=== PATIENT | male | born 1970 | race Caucasian/White ===

== ENCOUNTER 2019-04-10 14:28 | Inpatient (IN) ==
[2019-04-10] MEDS ORDERED: LR 1,000 ML ONE (15:21)
[2019-04-10] MEDS ORDERED: ZOSYN 3.375 GM in NS 50 ML IV ONE (15:40)
[2019-04-10 15:44] LABS: URINE SOURCE CLEAN CATCH
[2019-04-10 15:51] LABS: BILIRUBIN URINE NEGATIVE (NEGATIVE); BLOOD URINE TRACE (NEGATIVE); COLOR YELLOW; GLUCOSE URINE 1000 mg/dL (NEGATIVE); KETONE URINE 20 mg/dL (NEGATIVE); LEUKOCYTES URINE NEGATIVE (NEGATIVE); NITRITE URINE NEGATIVE (NEGATIVE); PROTEIN URINE TRACE mg/dL (NEGATIVE); SP GRAVITY URINE 1.008; TURBIDITY URINE CLEAR (CLEAR); UROBILINOGEN URINE NORMAL (NORMAL)
[2019-04-10 15:55] LABS: UR EPITHELIAL CELLS <10 /HPF (<10); URINE BACTERIA NEGATIVE /HPF; URINE RBC <10 /HPF (<10); URINE WBC <10 /HPF (<10)
[2019-04-10 15:57] LABS: HEMATOCRIT 38.2 % (42.0-52.0); HEMOGLOBIN 12.7 g/dL (14.0-18.0); MCH 28.1 PG (27-31); MCHC 33.2 g/dL (33-37); MCV 84.5 FL (81-99); MPV 8.3 FL (7.4-10.4); RBC 4.52 XMIL (4.7-6.1); RDW 14.3 % (11.5-14.5); WBC 12.91 X1000 (4.8-10.8)
[2019-04-10 16:26] LABS: AGAP 10; ALB/GLOB RATIO 1.1; ALBUMIN 3.9 g/dL (3.5-5.0); ALKALINE PHOSPHATASE 69 U/L (32-122); BUN 14 mg/dL (8-22); CHLORIDE 97 mmol/L (98-107); COSMO 270; CREATININE 0.9 mg/dL (0.7-1.2); ESTIMATED GFR > 60; GLUCOSE 121 mg/dL (70-104); GOT 15 U/L (10-34); GPT 38 U/L (10-44); POTASSIUM 3.5 mmol/L (3.5-5.1); SODIUM 134 mmol/L (136-145); TCO2 27 mmol/L (25-35); TOTAL BILIRUBIN 0.79 mg/dL (0.20-1.00); TOTAL PROTEIN 7.3 g/dL (6.3-8.3)
[2019-04-10] MEDS ORDERED: PEPCID ONE (16:51)
[2019-04-10] MEDS ORDERED: ZOFRAN IV PRN (17:28)
[2019-04-10] MEDS ORDERED: TYLENOL PO PRN (17:28)
[2019-04-10] MEDS ORDERED: VANCOMYCIN IV PER PHARMACY MISC SCH (17:30)
[2019-04-10] MEDS ORDERED: QUELICIN (DOSE) ONE (18:41)
[2019-04-10] MEDS ORDERED: XYLOCAINE-MPF 2% ONE ×2 (18:41→18:49)
[2019-04-10] MEDS ORDERED: DIPRIVAN 1% ONE ×2 (18:41→18:48)
[2019-04-10] MEDS ORDERED: FENTANYL ONE (19:40)
[2019-04-10] MEDS ORDERED: EPHEDRINE ONE (19:59)
[2019-04-10] MEDS ORDERED: VANCOMYCIN 2 GM in NS 500 ML IV SCH (20:00)
[2019-04-10] MEDS ORDERED: D5 1/2 NS + KCL 20 MEQ 1,000 ML ONE (20:13)
--- NOTE | 2019-04-10 21:06 | OPERATIVE NOTE ---
PROCEDURE DATE: 04/10/2019 PREOPERATIVE DIAGNOSES: Abscess central abdomen with history of recent open umbilical hernia repair with mesh. PROCEDURE PERFORMED: Incision and drainage of abscess. DESCRIPTION OF PROCEDURE: The patient was brought to the operating room. After satisfactory induction of IV and LMA anesthesia, his abdomen was broadly prepped and draped in the appropriate manner. The midportion of the keena were removed with decompression of a large amount of purulent material. Anaerobic and aerobic cultures were obtained. The wound was washed out and irrigated with peroxide. The mesh appears to be in place with no recurrence of the hernia. A half of a Kerlix was soaked in Betadine solution and placed in the wound. A large piece of Biodrape was placed over this and a Edgar-Siu drain was placed beneath it. The drain was hooked to suction. The patient was subsequently awakened and extubated in the operating room and transferred to recovery. Estimated blood loss was about 10 mL. cc: Peter Lopes MD
[2019-04-11] MEDS: ZOSYN 3.375 GM in NS 50 ML IV SCH ×2 (00:05→06:24)
[2019-04-11] MEDS: D5 1/2 NS 1,000 ML IV SCH ×2 (09:46→17:39)
[2019-04-11] MEDS: MORPHINE IV PRN (09:46)
[2019-04-11] MEDS: NORCO-10 PO PRN (11:28)
--- NOTE | 2019-04-11 13:09 | INFECTIOUS DISEASE CONSULT REP ---
DATE: 04/11/2019 CONCLUSION: The patient is status post incision and drainage of a postoperative abdominal wall abscess which appeared to extend to the underlying mesh. Gram stain of the material from surgery shows gram-positive cocci. RECOMMENDATIONS: I agree with treating the patient with vancomycin. I have discontinued Zosyn. DISCUSSION: Patient recently had abdominal wall hernia repair, which included placing mesh in the abdominal wall. The patient has developed an abscess and yesterday at surgery, the abscess was drained by Dr. Lopes. I read his operative note and it appears that the abscess extended down to the mesh. PAST MEDICAL HISTORY/REVIEW OF SYSTEMS: Eyes and Ears: The patient wears glasses but his hearing is okay. Neck: No stiffness. Respiratory: No cough or shortness of breath. Cardiac: No chest pain or palpitations. GI: No nausea, vomiting, or diarrhea. : No dysuria or flank pain. Bones, joints, muscles: No swollen joints or muscle aches. Endocrine: Patient is diabetic but he does not have thyroid disease. Integument: No rashes. 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 He has had the left carpal tunnel surgery. It should be noted that the patient had a Staph infection of the of the incision from his brain tumor removal. MEDICAL DISEASES: Positive for obesity, brain tumor, diabetes mellitus, hypertension, and hyperlipidemia. INFECTIOUS DISEASE HISTORY: Positive for an infected incision of brain tumor surgery. Does not have a history of pneumonia. FAMILY HISTORY: Positive for diabetes mellitus, hypertension, and cancer. SOCIAL HISTORY: The patient lives in [place]. He is single. He lives with his grandmother. He bathes his dogs 2 times a week. ALLERGIES: His chart lists an allergy to Dilantin. HOME MEDICATIONS: Include the following 1. Norvasc. 2. Lipitor. 3. Farxiga. 4. Colace. 5. Hydrocodone. 6. Lamotrigine. 7. Losartan/hydrochlorothiazide. 8. Metformin. 9. Metoprolol. 10. Zofran. 11. Januvia. 12. Spironolactone. 13. Flomax. 14. Desyrel. 15. CO Q-10. LABORATORY DATA: The patient's laboratory studies thus far show a CBC with a white count of 12,910, hemoglobin 12.7, and platelet count 241,000. Creatinine is 0.9. GFR is greater than 60. Liver function studies are normal. Urinalysis showed no white cells or bacteria. The Gram stain of the patient's abdominal wall from surgery showed gram-positive cocci. PHYSICAL EXAMINATION: Vital Signs: Temperature is 97.9 degrees, pulse 76, respirations 18, blood pressure 142/81. The patient is 5 feet 6 inches tall, weighs 245 pounds. General: This is an obese, middle-aged male. He is in no acute distress. Head/eyes/ears/nose/throat: He can hear my spoken words and see near objects. There were no white patches in his mouth. Neck: No meningismus. Lungs: Clear to auscultation. Cardiovascular: Heart rate is regular. Abdomen: Has a large dressing over it and a drain coming from the abdomen. Neurologic: Patient is alert. He can move his extremities. There is no tremor. His sensation was intact to touch. His memory as regarding his medical history is intact also. Thank you for the consult. cc: MD Peter Méndez MD
[2019-04-11] MEDS: VANCOMYCIN 1,500 MG in NS 250 ML IV SCH (13:37)
[2019-04-11] MEDS: GLUCOPHAGE PO SCH ×2 (17:42→22:25)
[2019-04-11] MEDS: LIPITOR PO SCH (21:33)
[2019-04-11] MEDS: LAMICTAL PO SCH (21:33)
[2019-04-11] MEDS: DESYREL PO SCH (21:33)
[2019-04-11] MEDS: COLACE PO SCH (21:33)
[2019-04-11] MEDS: NIACIN PO SCH (21:34)
[2019-04-11] MEDS: PATIENT'S OWN MED PO SCH (21:42)
[2019-04-12] MEDS: VANCOMYCIN 1,500 MG in NS 250 ML IV SCH ×2 (02:31→14:43)
[2019-04-12] MEDS: D5 1/2 NS 1,000 ML IV SCH ×3 (02:31→14:56)
[2019-04-12] MEDS: NORCO-10 PO PRN ×2 (02:38→21:40)
[2019-04-12] MEDS: MORPHINE IV PRN ×2 (04:07→09:35)
[2019-04-12] MEDS: GLUCOPHAGE PO SCH ×3 (08:09→17:42)
[2019-04-12] MEDS: NON-FORMULARY MED (Dapagliflozin Propanediol [Farxiga] 0 MG) PO SCH (09:27)
[2019-04-12] MEDS: JANUVIA PO SCH (09:28)
[2019-04-12] MEDS: NIACIN PO SCH ×2 (09:28→20:45)
[2019-04-12] MEDS: COENZYME Q10 PO SCH (09:28)
[2019-04-12] MEDS: LOPRESSOR PO SCH (09:29)
[2019-04-12] MEDS: HYZAAR 100/12.5 MG TAB PO SCH (09:29)
[2019-04-12] MEDS: FLOMAX PO SCH (09:29)
[2019-04-12] MEDS: COLACE PO SCH ×2 (09:29→20:45)
[2019-04-12] MEDS ORDERED: HALCION PO PRN (09:39)
[2019-04-12] MEDS: ASPIRIN PO SCH (09:42)
[2019-04-12] MEDS: LIPITOR PO SCH (20:45)
[2019-04-12] MEDS: DESYREL PO SCH (20:45)
[2019-04-12] MEDS: LAMICTAL PO SCH (20:45)
[2019-04-12] MEDS: RESTORIL PO PRN (21:41)
[2019-04-13] MEDS: MORPHINE IV PRN ×2 (01:31→10:10)
[2019-04-13] MEDS: PATIENT'S OWN MED PO SCH ×3 (02:07→21:58)
[2019-04-13] MEDS: VANCOMYCIN 2,000 MG in NS 500 ML IV SCH ×2 (04:26→16:12)
[2019-04-13] MEDS: D5 1/2 NS 1,000 ML IV SCH ×2 (05:18→17:49)
[2019-04-13] MEDS: NIACIN PO SCH ×2 (08:29→21:53)
[2019-04-13] MEDS: JANUVIA PO SCH (08:29)
[2019-04-13] MEDS: FLOMAX PO SCH (08:30)
[2019-04-13] MEDS: GLUCOPHAGE PO SCH ×3 (08:30→17:44)
[2019-04-13] MEDS: LOPRESSOR PO SCH (08:30)
[2019-04-13] MEDS: COENZYME Q10 PO SCH (08:30)
[2019-04-13] MEDS: COLACE PO SCH ×2 (08:30→21:54)
[2019-04-13] MEDS: HYZAAR 100/12.5 MG TAB PO SCH (08:30)
[2019-04-13] MEDS: ASPIRIN PO SCH (08:30)
[2019-04-13] MEDS: NON-FORMULARY MED (Dapagliflozin Propanediol [Farxiga] 0 MG) PO SCH (08:35)
[2019-04-13] MEDS ORDERED: CITRATE OF MAGNESIA PO ONE (09:39)
[2019-04-13] MEDS: NORCO-10 PO PRN ×2 (11:26→21:53)
[2019-04-13] MEDS: RESTORIL PO PRN (21:53)
[2019-04-13] MEDS: DESYREL PO SCH (21:53)
[2019-04-13] MEDS: LAMICTAL PO SCH (21:53)
[2019-04-13] MEDS: LIPITOR PO SCH (21:53)
[2019-04-14] MEDS: VANCOMYCIN 2,000 MG in NS 500 ML IV SCH (03:42)
[2019-04-14] MEDS: D5 1/2 NS 1,000 ML IV SCH (05:27)
[2019-04-14] MEDS: PATIENT'S OWN MED PO SCH (09:42)
[2019-04-14] MEDS: NIACIN PO SCH (09:42)
[2019-04-14] MEDS: FLOMAX PO SCH (09:43)
[2019-04-14] MEDS: ASPIRIN PO SCH (09:44)
[2019-04-14] MEDS: LOPRESSOR PO SCH (09:44)
[2019-04-14] MEDS: NON-FORMULARY MED (Dapagliflozin Propanediol [Farxiga] 0 MG) PO SCH (09:44)
[2019-04-14] MEDS: JANUVIA PO SCH (09:45)
[2019-04-14] MEDS: COENZYME Q10 PO SCH (09:45)
[2019-04-14] MEDS: HYZAAR 100/12.5 MG TAB PO SCH (09:45)
[2019-04-14] MEDS: GLUCOPHAGE PO SCH (09:45)
[2019-04-14] MEDS: COLACE PO SCH (09:45)
[2019-04-14] MEDS: MORPHINE IV PRN (11:20)
[2019-04-14 13:10] VITALS: BP 142/89
--- NOTE | 2019-04-14 14:43 | INFECTIOUS DISEASE PROGRESS NO ---
DATE: 04/14/2019 The patient is being discharged today by Dr. Lpoes. He will be followed up as an outpatient by Dr. Lopes. He is going home on Keflex. cc: MD Peter Méndez MD
--- NOTE | 2019-04-20 10:34 | DISCHARGE SUMMARY ---
ADMISSION DATE: 04/11/2019 DISCHARGE DATE: 04/14/2019 DIAGNOSIS: Infection in previous hernia repair with mesh. PROCEDURES: I and D with placement of wound VAC. Infection grew methicillin sensitive Staph aureus. HISTORY: The patient is a 48-year-old, white male who had a large umbilical hernia with incarcerated omentum with significant stretching of the skin around the umbilicus. He recently had an open transverse incision umbilical hernia repair with excision of redundant skin with placement of mesh and primary closure. The patient subsequently developed pain and swelling and purulent drainage and was seen in the office and admitted. He was taken to surgery on the evening of admission with decompression of purulent material that eventually grew Staph aureus. Wound VAC was deployed and the patient was given broad-spectrum antibiotics with consultation to Dr. David Marroquin. Hospitalization was largely uneventful. The wound VAC was changed and he was allowed home for planned admission later for wound VAC removal and secondary closure. The patient has had a previous craniotomy for a low-grade glioma. He did have a staph infection with this as well. This was 20 years ago and he has recovered from that. cc: Peter Lopes MD
== END 2019-04-14 14:46 | disposition home health service (06) | DRG 857 ==
LOC: 4N 14:28 → OR 14:28 → 4N 04-12 13:26
PROVIDERS: ADMIT Surgery; ATTEND Surgery
CPT/HCPCS: 80053; 80202; 81001; 82948; 85027; 87070; 87075; 87077; 87186; 87205; A9270; J0330; J2270; J2405; J2543; J3010; J3370; J3480; J7040; J7050; J7120; XXXXX